=== PATIENT | female | born 1970 | race Caucasian/White ===

== ENCOUNTER 2018-01-08 22:23 | Inpatient (IN) | payer BC ==
[~2018-01-08] VITALS: Ht 167.6 cm; Wt 88.1 kg
[2018-01-08 22:30] VITALS: BP 114/79
--- OUTSIDE RECORDS SUMMARY | 2018-01-08 22:46 | XMS REPORT | Clinical Summary ---
Author Author [facility] Organization [facility] Address Unknown Phone Unavailable Care Team Providers Care Crm Campaign Manager Name Role Phone Zulema Granados MD PCP Allergies No Known Allergies Current Medications Prescription Sig. Disp. Refills Start End Date Status Date amitriptyline (ELAVIL) 25 Take 25 mg by mouth Active MG tablet nightly. methocarbamol (ROBAXIN) Take 1 tablet (500 mg 8 tablet 0 07/21/19 Active 500 MG tablet total) by mouth 2 (two) 17 times a day. Active Problems Not on file Social History Tobacco Use Types Packs/Day Years Used Date Never Smoker Alcohol Use Drinks/Week oz/Week Comments No Sex Assigned at Date Recorded Not on file Last Filed Vital Signs Not on file Plan of Treatment Not on file Results Not on fileafter 01/07/2017 Insurance Payer Benefit Subscriber ID Type Phone Address Plan / Group COMMERCIAL MISC MISC xxxxxxxxxxxxxxx Commercial COMMERCIAL x BCBS BCBS OUT xxxxxxxxxxxx PPO OF STATE VERONIQUE VARGAS Third Self 1970 Home: [address] [place] [place] [address] Liability
[2018-01-09] VITALS (8 sets, daily range): BP systolic 105–164; BP diastolic 62–78
[2018-01-09] MEDS ORDERED: MORPHINE SULFATE INJ 4 MG/ML INJ IV PRN
[2018-01-09] MEDS: MORPHINE SULFATE INJ 4 MG/ML INJ IV PRN ×2 (04:23→21:04)
[2018-01-09 06:39] LABS: BASOPHILS # (AUTO) 0.1 (0.0-0.1); BASOPHILS % 0.5 % (0.0-1.0); EOSINOPHILS # (AUTO) 0.2 (0.0-0.4); EOSINOPHILS % 1.9 % (0.0-6.0); HEMATOCRIT 40.3 % (34.2-44.1); HEMOGLOBIN 13.5 g/dL (12.0-16.0); LYMPHOCYTES # (AUTO) 3.9 (1.0-3.2); LYMPHOCYTES % 35.4 % (18.0-39.1); MEAN CORPUSCULAR HEMOGLOBIN 31.7 pg (28-32); MEAN CORPUSCULAR HGB CONC 33.5 g/dL (31-35); MEAN CORPUSCULAR VOLUME 94.6 fL (81-99); MONOCYTES # (AUTO) 0.9 (0.2-0.8); MONOCYTES % 7.8 % (4.4-11.3); NEUTROPHILS % 53.9 % (38.7-80.0); PLATELET COUNT 288 x10e3/uL (140-360); RED BLOOD COUNT 4.26 x10e6/uL (3.6-5.1); RED CELL DISTRIBUTION WIDTH 13.7 % (11.7-14.4)
[2018-01-09 06:58] LABS: ANION GAP 12.3 mmol/L (8-16); BLOOD UREA NITROGEN 11 mg/dL (7-26); BUN/CREATININE RATIO 11 (6-25); CALCIUM 9.4 mg/dL (8.4-10.2); CARBON DIOXIDE 22 mmol/L (22-29); CHLORIDE 105 mmol/L (98-107); CREATININE, SERUM 0.96 mg/dL (0.57-1.11); EST GLOMERULAR FILTRATION RATE > 60 ML/MIN (60-); GLUCOSE 83 mg/dL (74-118); POTASSIUM 4.3 mmol/L (3.5-5.1); SODIUM 135 mmol/L (136-145)
[2018-01-09] MEDS ORDERED: LORATADINE 10 MG TAB PO STA (07:23)
[2018-01-09] MEDS ORDERED: METHYLPREDNISOLONE SOD SUCC 40 MG/ML VIAL IV ONE ×2 (07:30)
[2018-01-09] MEDS: SODIUM CHLORIDE 0.9% 1000ML 1,000 ML IV SCH ×3 (08:52→21:48)
[2018-01-09] MEDS: FAMOTIDINE 20 MG/2 ML VIAL IV SCH ×2 (08:52→20:59)
[2018-01-09] MEDS ORDERED: FAMOTIDINE 20 MG/2 ML VIAL IV SCH (09:00)
[2018-01-09] MEDS ORDERED: LORATADINE 10 MG TAB PO SCH (09:00)
--- NOTE | 2018-01-09 09:22 | History and Physical ---
PRIMARY CARE PHYSICIAN: Dr. Tomás Reynoso CHIEF COMPLAINT: Right-sided abdominal pain. HISTORY OF PRESENT ILLNESS: A 47-year-old woman with a history of GERD and fibromyalgia, now developing right upper quadrant abdominal pain. Went to [facility] emergency room and transferred here for further evaluation and management. CT scan was obtained, but no contrast used due to allergy to contrast. The patient was admitted for further evaluation and management. The patient also experienced some nausea, chills and dizziness. PAST MEDICAL HISTORY: GERD and fibromyalgia. PAST SURGICAL HISTORY: Hysterectomy. ALLERGIES: PER ELECTRONIC MEDICAL RECORDS. FAMILY HISTORY/SOCIAL HISTORY: Patient is and has occasional alcohol. No cigarettes or illicits. MEDICATIONS: Per electronic medical record. REVIEW OF SYSTEMS: Denies any dizziness, chest pain, shortness of breath, fever, chills, sweats, vomiting, diarrhea, headache. PHYSICAL EXAMINATION VITAL SIGNS: Have been reviewed. GENERAL: A tired-appearing woman resting in bed. HEENT: Anicteric. Pupils respond to light. No oral lesions. CARDIOVASCULAR: Normal S1 and S2. LUNGS: Moderate breath sounds. ABDOMEN: Soft and nondistended. Right upper quadrant is nontender at this time. Wang's sign is negative at this time. EXTREMITIES: No edema. SKIN: Dry. PSYCHIATRIC: Normal affect. LABS: Reviewed. MEDICATIONS: Reviewed. ASSESSMENT: A 47-year-old woman with: 1. Right upper quadrant abdominal pain. 2. Obesity. 3. Fibromyalgia. 4. Gastroesophageal reflux disease. PLAN 1. Will get a CT with contrast after desensitizing or versus MRI. 2. Obtain ultrasound of the right upper quadrant. 3. Restart home medications. 4. Use SCD for DVT prophylaxis and Pepcid for GI prophylaxis. Job#: [id number] PA
[2018-01-09] MEDS: PIPER-TAZ 3.375 GM 50 ML IV SCH ×2 (11:15→18:06)
--- NOTE | 2018-01-09 12:36 | Diagnostic Imaging Report ---
Right upper/lower quadrant abdominal ultrasound. History: Pain. Comparison: <None available>. Discussion: Transverse and longitudinal images of the right upper quadrant of the abdomen were obtained demonstrating a liver of normal size and echogenicity measuring 14.5 cm in length. There is a 1.9 cm left hepatic lobe complex cyst. Right hepatic lobe cyst measures 5.8 cm. There is no evidence of a focal hepatic mass. The portal vein is patent with hepatopetal flow and is within normal limits measuring 9 mm in diameter. The biliary tree is within normal limits with the common bile duct measuring 7 mm in diameter. The gallbladder is normal without evidence of wall thickening or pericholecystic fluid. The sonographic Wang's sign was negative. The right kidney is normal in size and echogenicity without evidence of hydronephrosis, stones, or mass and measures 10.7 cm in length. Pancreatic tail not visualized. The abdominal aorta is within normal limits. The IVC is normal. There is no evidence of free fluid. Scanning in the right lower quadrant to evaluate for an enlarged appendix is normal. No mass or inflammation. IMPRESSION: 1. Hepatic cysts as described above. 2. Gallbladder is unremarkable. 3. No appendix visualized. Signed by: Dr. Max Farmer DO on 01/09/2018 12:32 PM
--- NOTE | 2018-01-09 13:49 | Consultation ---
DATE OF CONSULTATION: January 09, 2018 CHIEF COMPLAINT: Abdominal pain. HISTORY OF PRESENT ILLNESS: The patient is a 47-year-old female with a 2-day history of pain located in the right side starting in the lower quadrant and migrating to the upper quadrant with nausea. No vomiting. No fever, chills or diarrhea. No previous similar attacks in the past. PAST MEDICAL HISTORY: Significant for fibromyalgia. SURGICAL HISTORY: Positive for hysterectomy. ALLERGIES: THE PATIENT IS ALLERGIC TO IV CONTRAST DYE. SOCIAL HISTORY: No smoking or alcohol abuse. REVIEW OF SYSTEMS: No chest pain, shortness of breath or cough. PHYSICAL EXAMINATION VITAL SIGNS: Stable and afebrile. GENERAL: The patient is awake, alert and in mild discomfort. HEENT: Sclerae anicteric. NECK: Supple. LUNGS: Clear. HEART: Regular rate and rhythm. ABDOMEN: Soft with mild guarding in the right upper quadrant without rebound. EXTREMITIES: Without cyanosis or edema. White cell count is 11. Creatinine is 0.9. Liver function tests unremarkable. CT of the abdomen showed no evidence of inflammation at the right lower quadrant to suggest appendicitis. ASSESSMENT: Right upper quadrant pain, likely cholecystitis. PLAN: HIDA scan has been ordered. Clear liquids until results received. Thank you for the consultation. Job#: [id number] ROSE
--- NOTE | 2018-01-09 19:11 | Diagnostic Imaging Report ---
Hepatobiliary Scan with Gallbladder Ejection Fraction Clinical information: RUQ abdominal pain x 24 hours Technique: Following intravenous administration of 6.0 millicuries of Tc-99m mebrofenin, dynamic images of the abdomen in the anterior projection were obtained through 36 minutes. Sincalide (CCK analog) 1.9 micrograms was administered intravenously over 30 minutes with additional imaging for determination of gallbladder ejection fraction. Discussion: Perfusion of the liver is normal. Extraction of tracer by the liver parenchyma is normal. Tracer appears promptly within the biliary tract. The gallbladder begins to fill by 6 minutes post injection of tracer and fills adequately. Tracer is seen in the small bowel by during the sincalide infusion. The gallbladder ejection fraction with sincalide is 17% (normal greater than 40%). Impression: 1. Filling of the gallbladder excludes acute cystic duct obstruction/acute cholecystitis. 2. The decreased gallbladder ejection fraction of 17% supports the clinical diagnosis of chronic cholecystitis/gallbladder dyskinesia. Signed by: Dr. Ariane Whal M.D. on 01/09/2018 7:08 PM
[2018-01-09] MEDS: ONDANSETRON HCL INJ 2 MG/ML VIAL IV PRN (21:03)
[2018-01-10] VITALS (7 sets, daily range): BP systolic 93–149; BP diastolic 54–91
[2018-01-10] MEDS: PIPER-TAZ 3.375 GM 50 ML IV SCH ×4 (00:03→17:01)
[2018-01-10] MEDS: LORATADINE 10 MG TAB PO SCH (09:00)
[2018-01-10] MEDS: ONDANSETRON HCL INJ 2 MG/ML VIAL IV PRN ×2 (09:38→17:01)
[2018-01-10] MEDS: MORPHINE SULFATE INJ 4 MG/ML INJ IV PRN ×3 (09:38→23:07)
[2018-01-10] MEDS: FAMOTIDINE 20 MG/2 ML VIAL IV SCH ×2 (09:38→21:10)
[2018-01-10] MEDS ORDERED: BUPIVACAINE 0.25%/EPI 30ML SDV INJ ONE (11:46)
[2018-01-10] MEDS ORDERED: ONDANSETRON HCL INJ 2 MG/ML VIAL ONE (17:48)
[2018-01-10] MEDS ORDERED: NEOSTIGMINE 5 MG/5ML SYR ONE (17:48)
[2018-01-10] MEDS ORDERED: DEXAMETHASONE SOD PHOS INJ 4 MG/ML VIAL ONE (17:48)
[2018-01-10] MEDS ORDERED: PROPOFOL IV EMULSION 10 MG/ML 20 ML VIAL ONE (17:48)
[2018-01-10] MEDS ORDERED: GLYCOPYRROLATE INJ 1MG/ 5 ML SYR ONE (17:48)
[2018-01-10] MEDS ORDERED: ACETAMINOPHEN 1000 MG/100 ML IV ONE (17:48)
[2018-01-10] MEDS ORDERED: LIDOCAINE HCL 2% LOCAL INJ 5 ML SDV VIAL INJ ONE (17:48)
[2018-01-10] MEDS ORDERED: ROCURONIUM BROMIDE 10 MG/ML 5ML VIAL ONE (17:48)
[2018-01-10] MEDS ORDERED: SEVOFLURANE INHAL SOLN 250 ML PEN BTL ONE (17:48)
[2018-01-10] MEDS ORDERED: MIDAZOLAM HCL 2 MG/2 ML VIAL ONE (18:22)
[2018-01-10] MEDS ORDERED: FENTANYL CITRATE/PF 100MCG/2 ML INJ ONE (18:22)
--- NOTE | 2018-01-10 18:47 | Operative Report ---
DATE OF PROCEDURE: January 10, 2018 PREOPERATIVE DIAGNOSES 1. Cholelithiasis. 2. Cholecystitis. POSTOPERATIVE DIAGNOSES 1. Cholelithiasis. 2. Cholecystitis. OPERATIVE PROCEDURE: Laparoscopic cholecystectomy. ANESTHESIA: General. INDICATIONS: A 47-year-old female with history of abdominal pain in the right lower quadrant and right upper quadrant for several days with ultrasound of the gallbladder showing no stones. CT scan showed no inflammation in the appendix. Patient had a HIDA scan which showed an ejection fraction of 70%. At this point, patient consented for laparoscopic cholecystectomy. Attendant risks discussed. PROCEDURE FINDINGS: Chronic cholecystitis with distention of the gallbladder. DESCRIPTION OF PROCEDURE: The patient was brought to the OR, intubated. The abdomen was prepped with alcohol and draped in sterile fashion. An infraumbilical incision was made and the 10 mm port inserted. Insufflation begun. Under direct vision, other port sites placed in the midepigastric and right upper quadrant. Gallbladder distended. It was decompressed with a needle and the fundus retracted in cephalad direction. Neck was retracted laterally. With blunt dissection, the cystic artery was isolated, triple clipped and divided. Cystic duct was also isolated, and the junction with the bile duct was noted before triple clipping the cystic duct and dividing between clips. The gallbladder detached from the liver with cautery and placed in an Endopouch and retrieved out of the peritoneal cavity. Operative field was then irrigated and hemostasis achieved. All ports removed under direct vision. Fascial closure with 0 Vicryl, skin closed with subcuticular stitch. Patient was extubated, transported to the recovery room. Estimated blood loss 5 mL. Job#: [id number] EV
[2018-01-10] MEDS: SODIUM CHLORIDE 0.9% 1000ML 1,000 ML IV SCH (23:45)
[2018-01-11] VITALS: BP 123/80
[2018-01-11] MEDS: PIPER-TAZ 3.375 GM 50 ML IV SCH ×3 (00:02→12:50)
[2018-01-11] MEDS: SODIUM CHLORIDE 0.9% 1000ML 1,000 ML IV SCH ×2 (00:02→09:45)
[2018-01-11 04:00] VITALS: BP 126/82
[2018-01-11] MEDS: ONDANSETRON HCL INJ 2 MG/ML VIAL IV PRN ×2 (05:53→13:47)
[2018-01-11] MEDS: MORPHINE SULFATE INJ 4 MG/ML INJ IV PRN ×2 (05:53→13:47)
[2018-01-11 07:31] VITALS: BP 110/66
[2018-01-11 08:23] LABS: BASOPHILS % 0.3 % (0.0-1.0); EOSINOPHILS % 0.1 % (0.0-6.0); HEMOGLOBIN 12.9 g/dL (12.0-16.0); LYMPHOCYTES # (AUTO) 2.3 (1.0-3.2); LYMPHOCYTES % 15.7 % (18.0-39.1); MEAN CORPUSCULAR HEMOGLOBIN 32.2 pg (28-32); MEAN CORPUSCULAR HGB CONC 33.9 g/dL (31-35); MEAN CORPUSCULAR VOLUME 94.8 fL (81-99); MONOCYTES # (AUTO) 1.2 (0.2-0.8); MONOCYTES % 8.6 % (4.4-11.3); NEUTROPHILS # (AUTO) 10.7 (2.1-6.9); PLATELET COUNT 276 x10e3/uL (140-360); RED BLOOD COUNT 4.01 x10e6/uL (3.6-5.1); RED CELL DISTRIBUTION WIDTH 13.2 % (11.7-14.4)
[2018-01-11 08:35] LABS: ANION GAP 13.2 mmol/L (8-16); BLOOD UREA NITROGEN 7 mg/dL (7-26); BUN/CREATININE RATIO 7 (6-25); CALCIUM 9.6 mg/dL (8.4-10.2); CARBON DIOXIDE 24 mmol/L (22-29); CHLORIDE 106 mmol/L (98-107); CREATININE, SERUM 0.95 mg/dL (0.57-1.11); EST GLOMERULAR FILTRATION RATE > 60 ML/MIN (60-); GLUCOSE 96 mg/dL (74-118); POTASSIUM 4.2 mmol/L (3.5-5.1); SODIUM 139 mmol/L (136-145)
[2018-01-11] MEDS: FAMOTIDINE 20 MG/2 ML VIAL IV SCH (09:00)
[2018-01-11] MEDS: LORATADINE 10 MG TAB PO SCH (09:00)
[2018-01-11 11:34] VITALS: BP 138/79
[2018-01-11 15:44] VITALS: BP 125/71
[2018-01-11] MEDS ORDERED: ULTRAM50 MG PO (16:59)
== END 2018-01-11 17:44 | disposition home or self-care (01) | DRG 419 ==
LOC: MED/SURG 22:44
PROVIDERS: ADMIT Internal Medicine; ATTEND Internal Medicine
PROC: 0FT44ZZ Resection of Gallbladder, Percutaneous Endoscopic Approach (ICD-10-PCS; principal; 2018-01-10 14:30)
DX: K81.1 Chronic cholecystitis (principal); M79.7 Fibromyalgia; K21.9 Gastro-esophageal reflux disease without esophagitis; E66.9 Obesity, unspecified; Z68.31 Body mass index [BMI] 31.0-31.9, adult
CPT/HCPCS: 36415; 76705; 78227; 80048; 85025; 88304; 96361; A9537; J1100; J2001; J2250; J2270; J2405; J2543; J7030